=== PATIENT | male | born 1960 | race Caucasian/White ===

== ENCOUNTER 2018-09-18 17:43 | Emergency (ER) | payer SELFPAY ==
[~2018-09-18] VITALS: Ht 177.8 cm; Wt 110.0 kg
[2018-09-18 18:03] VITALS: BP 135/73; PULSE 58; RESP 19; Ht 177.8 cm; Wt 110.0 kg
== END 2018-09-18 20:01 | disposition left against medical advice (07) ==
LOC: E/R 17:43
DX: Z53.21 Procedure and treatment not carried out due to patient leaving prior to being seen by health care provider (principal)

== ENCOUNTER 2018-09-19 | Emergency (ER) | payer SELFPAY ==
[~2018-09-19] VITALS: Ht 177.8 cm; Wt 110.0 kg
[2018-09-19 00:13] VITALS: BP 111/56; PULSE 68; RESP 19; Ht 177.8 cm; Wt 110.0 kg
== END 2018-09-19 01:48 | disposition left against medical advice (07) ==
LOC: E/R
DX: Z53.21 Procedure and treatment not carried out due to patient leaving prior to being seen by health care provider (principal)